=== PATIENT | female | born 2005 | race Two or more races ===

== ENCOUNTER 2024-05-13 14:14 | Outpatient (CLI) | payer OTHER, SELFPAY ==
--- NOTE | ~2024-05-13 | XR_ITS ---
XR chest 2V 05/13/2024 14:45 Indication: Positive TB test. Procedure: 2 view chest Comparison: No prior studies for comparison. Findings: Right upper lobe consolidation, suspicious for pneumonia. Heart size normal. No edema, pleu ral effusion or pneumothorax. Impression: 1: Right upper lobe consolidation, suspicious for pneumonia. Reviewed, dictated and finalized at location B. FILLER Impression: 1: Right upper lobe consolidation, suspicious for pneumonia.
== END 2024-05-13 14:15 | disposition home or self-care (01) ==
PROVIDERS: PCP Nurse Practitioner Psychiatric/Mental Health; Visit Provider Nurse Practitioner Psychiatric/Mental Health
DX: R76.12 Nonspecific reaction to cell mediated immunity measurement of gamma interferon antigen response without active tuberculosis (principal); R91.8 Other nonspecific abnormal finding of lung field
CPT/HCPCS: 71046